=== PATIENT | female | born 1995 | race Caucasian/White ===

== ENCOUNTER 2019-01-18 05:30 | Inpatient (IN) | payer OTHER ==
--- NOTE | 2019-01-18 00:36 | PDOC.LDHP ---
Labor and Delivery H&P Chief complaint: scheduled induction HPI: 23 y/o at 39 and 1/7 weeks for term induction of labor. EDC of . Current gestational age (weeks): 39 Due date: 01/24/19 Grav: 3 Para: 2 Current complications: none Abnormal US findings: No Current medications: pre- vitamins Previous surgical history: none Allergies/Adverse Reactions: Allergies Allergy/AdvReac Type Severity Reaction Status Date / Time No Known Allergies Allergy Verified 10/14/12 14:39 Social history: none - Physical Exam Vital signs reviewed and normal: yes General: NAD, resting Heart: RRR Lungs: CTAB Abdomen: NTTP Extremeties: no edema FHT: category 1 - Assessment L&D Assessment: elective induction at term - Plan Plan: admit to L&D, labor augmentation if indicated
[~2019-01-18 05:30] MED LIST: Acetaminophen 500 MG TAB PO PRN; Butorphanol Tartrate 1 MG/ML VIAL SLOW IVP PRN; Carboprost 250 MCG/ML AMP IM PRN; Diphenoxylate HCl/Atropine Tablet PO PRN; HYDROcodone/Acetaminophen 5/325 mg Tablet PO PRN; Ibuprofen 800 MG TAB PO PRN; Lidocaine 1% (PF) 30 ML VIAL SC PRN; Methylergonovine 0.2 MG/ML VIAL IM PRN; Misoprostol 200 MCG TAB PR PRN; NS w/ Oxytocin 10 units 500 ML IV SCH; Ondansetron PF 4 MG/2 ML Vial IVP PRN; Promethazine HCl 25 MG/ML VIAL IM PRN; hydrALAZINE 20 MG/ML VIAL SLOW IVP PRN
[2019-01-18] MEDS ORDERED: Bupivacaine HCl 0.5%/Epinephrine 1:200,000/PF 30 ml Vial ONE (09:00)
[2019-01-18] MEDS: Lactated Ringer's 1,000 ML IV SCH ×2 (09:06→15:38)
[2019-01-18 09:17] LABS: Mean Corpuscular HGB CONC 34.2 g/dL (32.0-36.0); Mean Corpuscular Hemoglobin 29.7 pg (27.0-31.0); Mean Corpuscular Volume 86.8 fL (78.0-98.0); Mean Platelet Volume 7.3 fL (7.4-10.4); Platelet Count 402 thou/uL (130-400); RBC Distribution Width 13.3 % (11.5-14.5); Red Blood Cell (RBC) Count 3.72 mill/uL (4.20-5.40); White Blood Cell (WBC) Count 11.1 thou/uL (4.8-10.8)
[2019-01-18 09:53] LABS: Syphilis Antibody Nonreactive (Nonreactive); Syphilis Antibody Index 0.04 S/CO (<1.00 Non-Reactive)
[2019-01-18 09:54] LABS: HBSAg Index 0.22 S/CO (0-0.99); Hep B Surf Ag Non-Reactive S/CO (NonReactive)
[2019-01-18 10:35] VITALS: BMI 30.2
[2019-01-18] MEDS ORDERED: Fentanyl 4 mcg/Bup 0.1% Cadd 100 ML ONE ×2 (15:23→19:21)
[2019-01-18] MEDS ORDERED: diphenhydrAMINE 50 MG/ML VIAL IVP PRN (15:57)
[2019-01-18] MEDS ORDERED: Ondansetron PF 4 MG/2 ML Vial IVP PRN ×2 (15:57→23:14)
[2019-01-18] MEDS ORDERED: Lactated Ringer's 500 ML IV PRN (15:57)
[2019-01-18] MEDS ORDERED: ePHEDrine/0.9% NaCl/PF SYRINGE 50 mg/10 ml SLOW IVP PRN (15:57)
[2019-01-18] MEDS ORDERED: Acetaminophen 325 MG TAB PO PRN (15:57)
[2019-01-18] MEDS ORDERED: Naloxone HCl 0.4 mg/ml Vial IVP PRN ×2 (15:57)
[2019-01-18] MEDS ORDERED: Promethazine HCl 25 MG/ML VIAL IM PRN ×2 (15:57→23:14)
[2019-01-18] MEDS ORDERED: Fentanyl 4 mcg/Bupivacaine 0.1% Cassette 100 ML EPIDURAL SCH (16:00)
[2019-01-18] MEDS ORDERED: Communication Order-Pharmacy FS PRN (16:00)
[2019-01-18] MEDS: NS / Oxytocin 40 units/1000ml 1,000 ML IV PRN ×2 (20:55→21:40)
[2019-01-18] MEDS ORDERED: Zolpidem Tartrate 5 MG TAB PO PRN (23:14)
[2019-01-18] MEDS ORDERED: NS / Oxytocin 40 units/1000ml 1,000 ML IV SCH (23:14)
[2019-01-18] MEDS ORDERED: Misoprostol 200 MCG TAB VAG PRN (23:14)
[2019-01-18] MEDS ORDERED: Lanolin Ointment 7 GM TUBE TOP PRN (23:14)
[2019-01-18] MEDS ORDERED: Preparation H Ointment 57 gram tube RC PRN (23:14)
[2019-01-18] MEDS ORDERED: hydrALAZINE 20 MG/ML VIAL SLOW IVP PRN (23:14)
[2019-01-18] MEDS ORDERED: Bisacodyl 10 MG SUPP PR PRN (23:14)
[2019-01-18] MEDS ORDERED: Benzocaine-Menthol 82.5 ML CAN TOP PRN (23:14)
[2019-01-18] MEDS ORDERED: HYDROcodone/Acetaminophen 5/325 mg Tablet PO PRN ×2 (23:14)
[2019-01-18] MEDS ORDERED: Acetaminophen/Codeine 30-300mg Tablet PO PRN ×2 (23:14)
[2019-01-18] MEDS ORDERED: diphenhydrAMINE 25 MG CAP PO PRN (23:14)
[2019-01-18] MEDS ORDERED: Milk Of Magnesia 30 ML UDCUP PO PRN (23:14)
[2019-01-18] MEDS ORDERED: Methylergonovine 0.2 MG/ML VIAL IM PRN (23:14)
[2019-01-18] MEDS ORDERED: Ibuprofen 800 MG TAB PO SCH (23:30)
[2019-01-18] MEDS ORDERED: Tranexamic Acid 1,000 MG/10 ML VIAL ONE (23:40)
[2019-01-18] MEDS ORDERED: Docusate Calcium (SURFAK) 240 MG CAP PO SCH (23:45)
--- NOTE | 2019-01-19 00:07 | PDOC.EVN ---
Event Note - Event Note Event Note: CTSP by Labor RN for bleeding. Reportedly uncomplicated by Dr. Carter, intact placenta, EBL at delivery was 50 cc. Now with continued bleeding with QBL of 700= so far. Cytotec, Hemabate and TXA ordered by Dr. Carter. VS now: RC=472/71, P=99 Bimanual demonstrates clot inLUS x 150- 200cc. Plan; T&S and hold 2 units, check CBC, observe closely.
[2019-01-19] MEDS ORDERED: Carboprost 250 MCG/ML AMP ONE ×2 (00:28→01:56)
[2019-01-19 00:31] LABS: Hemoglobin 10.3 g/dL (12.0-16.0); Mean Corpuscular HGB CONC 33.7 g/dL (32.0-36.0); Mean Corpuscular Hemoglobin 29.4 pg (27.0-31.0); Mean Corpuscular Volume 87.1 fL (78.0-98.0); Mean Platelet Volume 6.7 fL (7.4-10.4); Platelet Count 278 thou/uL (130-400); RBC Distribution Width 13.1 % (11.5-14.5); Red Blood Cell (RBC) Count 3.51 mill/uL (4.20-5.40); White Blood Cell (WBC) Count 17.5 thou/uL (4.8-10.8)
[2019-01-19] MEDS: Carboprost 250 MCG/ML AMP IM PRN ×2 (00:34→02:03)
[2019-01-19] MEDS ORDERED: Diphenoxylate HCl/Atropine Tablet PO PRN (00:43)
[2019-01-19] MEDS ORDERED: Tranexamic Acid 1,000 MG/10 ML VIAL ONE (00:48)
[2019-01-19] MEDS ORDERED: Butorphanol Tartrate 1 MG/ML VIAL SLOW IVP PRN (01:51)
[2019-01-19] MEDS ORDERED: Butorphanol Tartrate 1 MG/ML VIAL ONE (01:56)
[2019-01-19 04:42] LABS: Hemoglobin 12.4 g/dL (12.0-16.0); Mean Corpuscular HGB CONC 33.4 g/dL (32.0-36.0); Mean Corpuscular Hemoglobin 29.1 pg (27.0-31.0); Mean Corpuscular Volume 86.9 fL (78.0-98.0); Mean Platelet Volume 7.4 fL (7.4-10.4); Platelet Count 327 thou/uL (130-400); RBC Distribution Width 13.5 % (11.5-14.5); Red Blood Cell (RBC) Count 4.28 mill/uL (4.20-5.40)
[2019-01-19] MEDS ORDERED: Measles/Mumps/Rubella 10 MCG/0.5 ML VIAL SC ONE (09:00)
[2019-01-19] MEDS ORDERED: Varicella virus, LIVE 0.5 ML VIAL SC ONE (09:00)
[2019-01-19] MEDS ORDERED: Adacel (T-DAP) 0.5 ML SYRINGE IM ONE (09:00)
--- NOTE | 2019-01-19 09:06 | ULT ---
PRELIMINARY REPORT/[facility]/EMERGENCY AFTER HOURS PROCEDURE: PROCEDURE INFORMATION: Exam: US Pelvis Limited, Transabdominal Exam date and time: 01/19/2019 1:06 AM Clinical history: 23 years old, female; Patient HX: hemorrhage, vaginal delivery tonight TECHNIQUE: Imaging protocol: Real-time transabdominal pelvic ultrasound with image documentation. Limited exam. COMPARISON: No relevant prior studies available. FINDINGS: Heterogeneous endometrial stripe measuring approximately 2 cm with internal Doppler flow most promine nt along the lower uterine segment. 15 sonographic images. IMPRESSION: Heterogeneous thickened endometrial stripe with internal Doppler flow. Thank you for allowing us to participate in the care of your patient. Dictated and Authenticated by: Edward Harrell MD 01/19/2019 1:44 AM Central Time ([place] & [place]) FINAL REPORT LIMITED OB ULTRASOUND: HISTORY: hemorrhage. Vaginal delivery tonight. COMPARISON: None. FINDINGS: There is an enlarged, heterogeneous uterus measuring 15.6 x 9.1 cm in the sagittal plane. The lower u terine segment demonstrates vascularity. Heterogeneous endometrium measuring approximately 1.5 cm is noted. IMPRESSION: Limited evaluation with only 15 sonographic images. The patient was scanned in the presence of the ob oswaldtricianDr. Carter. Heterogeneous endometrium as described above. Enlarged, heterogeneous uterus compatible with state. This report is in agreement with the preliminary report by Devin. POS: DIGNA
[2019-01-19] MEDS ORDERED: Diphenoxylate HCl/Atropine Tablet PO SCH (09:45)
[2019-01-19] MEDS: Prenatal Vitamin 1 TAB PO SCH (11:15)
[2019-01-19] MEDS: Ferrous Sulfate 325 MG TAB PO SCH ×2 (11:54→21:03)
[2019-01-19] MEDS: Docusate Calcium (SURFAK) 240 MG CAP PO SCH ×2 (11:55→21:21)
[2019-01-19] MEDS: Ibuprofen 800 MG TAB PO SCH ×3 (13:04→21:21)
[2019-01-19] MEDS: Lactated Ringer's 1,000 ML IV SCH (21:04)
[2019-01-20] MEDS: Ibuprofen 800 MG TAB PO SCH (06:31)
[2019-01-20 08:20] VITALS: BP 111/56; TEMP 98.4
[2019-01-20] MEDS: Ferrous Sulfate 325 MG TAB PO SCH (08:55)
[2019-01-20] MEDS: Docusate Calcium (SURFAK) 240 MG CAP PO SCH (09:30)
[2019-01-20] MEDS: Prenatal Vitamin 1 TAB PO SCH (09:30)
--- NOTE | 2019-01-21 15:07 | DN ---
DATE OF PROCEDURE: 01/18/2019 TIME OF SERVICE: at 2058 hours, Central Standard Time. PREOPERATIVE DIAGNOSIS: Intrauterine at 39 weeks and 1 day with a term induction of labor. POSTOPERATIVE DIAGNOSIS: Intrauterine at 39 weeks and 1 day with a term induction of labor. PROCEDURE PERFORMED: Spontaneous vaginal delivery over intact perineum. FINDINGS: Viable female infant weighing 3545 g or 7 pounds 13 ounces, Apgars 9 and 9. QUANTITATIVE BLOOD LOSS: Reported as 51. COMPLICATIONS: The patient did experience a hemorrhage, although initially her bleeding was rather minimal. PROCEDURE IN DETAIL: The patient presented to [facility] where she was admitted to the labor and delivery service. The patient underwent a normal and uneventful labor with normal cervical dilatation until she was found to be completely dilated. She was then allowed to push and was able to bring the baby down and delivered the baby in a vertex presentation without difficulties. Once the head delivered in occiput anterior position, the shoulders followed spontaneously along with the rest of the baby's body. Once out the baby's mouth and nose were bulb suctioned. The cord was clamped and cut and baby was handed to waiting attendants. Cord blood was collected. Gentle fundal massage was performed and the placenta delivered intact without problems. Hemostasis was assured. Quantitative blood loss was calculated. Inspection of the cervix, vaginal vault, and perineum did not reveal any lacerations needing suturing. Once again, hemostasis was within normal limits and the patient was allowed to recover in the labor and delivery room. Baby went to nursery. Job ID: [id number]
--- NOTE | 2019-01-22 07:41 | PQF ---
Chio Muir DAVID MD [id number] CLINICAL DOCUMENTATION CLARIFICATION FORM: POST DISCHARGE Addendum to original discharge summary date: ____ Late entry note date: __ DATE:01/22/2019 ATTN: JAVIER WAITE MD Please exercise your independent, professional judgment in responding to the clarification form. Clinical indicators are provided on the bottom of this form for your review Please check appropriate box(s): [ ] Acute blood loss anemia [ ] Post-op anemia related to acute blood loss [ ] Anemia: [ ] Aplastic [ ] Nutritional [ ] Drug induced (specify) ___ [ ] Hemolytic [ ] Hereditary [ ] Acquired [ ] Autoimmune [ ] Non-autoimmune [ ] Enzyme disorder [ ] Chronic Anemia: [ ] Blood loss [ ] Hemolytic [ ] Simple [ ] Due to Vitamin B12 Deficiency [ ] Other [ ] Anemia of Chronic Disease (please specify) [ ] Anemia due to Neoplasm: [ ] Primary [ ] Secondary [ ] Anemia due to (please choose): [ ] Due to Chemotherapy [ ] Due to Radiotherapy [ ] Due to Immunotherapy [ ] Other diagnosis [ ] Unable to determine For continuity of documentation, please document condition throughout progress notes and discharge summary. Thank You. CLINICAL INDICATORS - SIGNS / SYMPTOMS / LABS 23 y /o G3 at 39 an 1/7 weeks for term induction of labor-Documented in Labor and delivery H&P on 01/20 by Javier Waite Complications:Operative and zbsvregafx-Papjhxmnkp-Inpqbfnqww in Obstetric discharge summary scanned note CTSP by Labor RN for bleeding.Reportedly uncomplicated by Dr Waite,intact placenta,EBL at delivery was 50cc.Now with continued bleeding with QBL of 700 + so far -Documented in Event note on 01/19 by Wellington Mares BP-117/54-Documented in Vital signs HGB-10.3,HCT-30.6-Documented in Laboratory on 01/19 RISK FACTORS Uncomplicated by Dr Waite-Documented in Event note on 01/19 by Wellington Mares TREATMENTS: Transfused leukocyte-Reduced red blood cells-Documented in Blood bank [employer] Win[employer] (This form is maintained as a part of the permanent medical record) 2014 [employer] All Rights Reserved [email or web address] [not provided] [email or web address]
== END 2019-01-20 12:35 | disposition home or self-care (01) | DRG 806 ==
LOC: L&D 08:10 → 3SW 01-19 11:01
PROVIDERS: ADMIT Obstetrics & Gynecology; ATTEND Obstetrics & Gynecology
PROC: 10E0XZZ Delivery of Products of Conception, External Approach (ICD-10-PCS; principal; 2019-01-18)
PROC: 3E033VJ Introduction of Other Hormone into Peripheral Vein, Percutaneous Approach (ICD-10-PCS; 2019-01-18)
DX: O72.1 Other immediate postpartum hemorrhage (principal); D62 Acute posthemorrhagic anemia; Z37.0 Single live birth; Z3A.39 39 weeks gestation of pregnancy; O90.81 Anemia of the puerperium
CPT/HCPCS: 36415; 36430; 51702; 76815; 85027; 86780; 86850; 86900; 86901; 87340; J0595; J0670; J2210; J2405; J2550; J2590; J3490; P9016

== ENCOUNTER 2023-03-08 21:32 | Emergency (ER) | payer OTHER ==
[2023-03-08] MEDS ORDERED: Ketorolac Tromethamine 30 MG (1 mL) VIAL ONE (22:19)
[2023-03-08 22:21] LABS: #Basophils 0.1 thou/uL (0.0-0.2); #Eosinphils 0.3 thou/uL (0.0-0.7); #Monocytes 0.7 thou/uL (0.11-0.59); #Neutrophils 7.9 thou/uL (1.40-6.50); %Basophils 0.9 % (0.0-1.0); %Lymphocytes 29.1 % (21.0-51.0); %Monocytes 5.8 % (0.0-10.0); Hematocrit 40.2 % (36.0-47.0); Hemoglobin 13.7 g/dL (12.0-16.0); Mean Corpuscular HGB CONC 34.1 g/dL (32.0-36.0); Mean Corpuscular Hemoglobin 31.1 pg (27.0-31.0); Mean Corpuscular Volume 91.4 fl (78.0-98.0); Mean Platelet Volume 9.7 fL (7.4-10.4); Platelet Count 345 10x3/uL (130-400); RBC Distribution Width 15.4 % (11.5-14.5); White Blood Cell (WBC) Count 12.8 10x3/uL (4.8-10.8)
[2023-03-08 22:50] LABS: BHCG - Serum Negative (NEGATIVE); Pregs Control Background? CLEAR/WHITE (CLR/WHITE); Pregs Control Bar Appear? YES (CONTROL BAR)
[2023-03-08 22:58] LABS: ALT (SGPT) 69 U/L (8-55); AST (SGOT) 21 U/L (5-34); Albumin 4.4 g/dL (3.5-5.0); Alkaline Phosphatase 236 U/L (40-110); Anion Gap 14 mmol/L (10-20); BUN (Urea Nitrogen) 18 mg/dL (7.0-18.7); Bilirubin, Total 0.5 mg/dL (0.2-1.2); Calc. Creatinine Clearance 0 mL/min (70-130); Calcium 9.7 mg/dL (7.8-10.44); Carbon Dioxide 21 mmol/L (22-29); Chloride 104 mmol/L (98-107); Estimated GFR 89; Globulin 2.9 g/dL (2.4-3.5); Glucose 104 mg/dL (70-105); Lipase 11 U/L (8-78); Potassium 3.9 mmol/L (3.5-5.1); Protein, Total 7.3 g/dL (6.0-8.3); Sodium 135 mmol/L (136-145)
== END 2023-03-08 23:28 | disposition home or self-care (01) ==
LOC: ERS 21:32
DX: R10.13 Epigastric pain (principal); F17.210 Nicotine dependence, cigarettes, uncomplicated
CPT/HCPCS: 36415; 71045; 80053; 83690; 84703; 85025; 93005; 96374; J1885